=== PATIENT | female | born 1990 | race American Indian/Alaskan Native ===

== ENCOUNTER 2017-10-08 06:16 | Observation (INO) | payer BC ==
[2017-09-13 08:45] VITALS: BMI 27.8
[2017-10-08] MEDS ORDERED: Propofol 10 mg/ml Inj (20 ML) ONE (07:07)
[2017-10-08] MEDS ORDERED: Succinylcholine 200 mg/10 ml Inj IV ONE (07:08)
[2017-10-08] MEDS ORDERED: ePHEDrine 50 mg/ml Inj ONE (07:08)
[2017-10-08] MEDS ORDERED: Midazolam 2 MG/2 ML VIAL ONE (07:08)
[2017-10-08] MEDS ORDERED: Rocuronium 10 mg/ml (5 ml) ONE ×2 (07:08→09:26)
[2017-10-08] MEDS ORDERED: Phenylephrine 10 mg/ml Inj ONE ×2 (07:08→07:24)
[2017-10-08] MEDS ORDERED: Sevoflurane - Inhalation Anesthetic Liq (250 ml) ONE (07:17)
[2017-10-08] MEDS ORDERED: Vasopressin 20 Units/ml Inj ONE (07:22)
[2017-10-08] MEDS ORDERED: ceFAZolin IV 2 gm in Dextrose 0 GM/0 ML BAG IVPB ONE (07:22)
[2017-10-08 07:42] LABS: BASO % 0.8 % (0.0-2.0); EOS % 0.6 % (0.0-4.0); HEMOGLOBIN 11.2 g/dL (12.0-16.0); LYMPH # 1.4 K/uL (1.0-4.3); LYMPH % 37.4 % (20.0-40.0); MEAN CELL VOLUME 99.3 fl (81.0-99.0); MEAN CORPUSCULAR HGB CONC 34.3 g/dL (33.0-37.0); MEAN PLATELET VOLUME 8.5 fl (7.2-11.7); MONO # 0.6 K/uL (0.0-0.8); MONO % 14.9 % (0.0-10.0); NEUT # 1.8 K/uL (1.8-7.0); NEUT % 46.3 % (50.0-75.0); RBC 3.29 Mil/uL (3.80-5.20); RED CELL DISTRIBUTION WIDTH 12.6 % (11.5-14.5); WHITE BLOOD COUNT 3.8 K/uL (4.8-10.8)
--- NOTE | 2017-10-08 08:03 | CP.SDSHP ---
Same Day Surgery H & P - History Proposed Procedure: Robotic myomectomy secondary to pelvic pressure and pain and menorrhagia - Allergies Allergies: Allergies No Known Allergies Allergy (Verified 09/13/17 08:45) - Physical Exam Vital Signs: Vital Signs 10/08/17 10/08/17 07:34 07:50 Temperature 98.4 F Pulse Rate 70 70 Respiratory 18 Rate Blood Pressure 109/73 O2 Sat by Pulse 100 Oximetry - Impression Impression: Fibroid uterus we discussed the risks benefits and alternatives to myomectomy patient was given the opportunity to ask questions are questions answered patient agreed to plan of care - Date & Time Date: 10/08/17 Time: 08:02 Short Stay Discharge - Short Stay Discharge Admitting Diagnosis/Reason for Visit: D25.9,R10.2 Disposition: HOME/ ROUTINE Referrals: FAMILY PROVIDER,NO [Primary Care Provider] -
[2017-10-08] MEDS ORDERED: Clindamycin 600mg/50ml D5W 600 MG/50 ML VIAL IVPB ONE (08:13)
[2017-10-08] MEDS ORDERED: Morphine 1 mg/ml preservative-free Inj(Duramorph) ONE (08:24)
[2017-10-08] MEDS: Bupivacaine HCl 0.5% PF (30 ml) Inj ONE ×2 (08:35→11:52)
[2017-10-08] MEDS ORDERED: Lactated Ringer's 1,000 ML IV ONE ×3 (09:39→14:30)
[2017-10-08] MEDS ORDERED: Sodium Chloride 0.9% 1,000 ML IV ONE (09:41)
[2017-10-08] MEDS: Triamcinolone Acetonide 40 mg/mL Inj ONE ×2 (10:55→11:41)
[2017-10-08] MEDS ORDERED: Dexamethasone 4 mg/1 ml ONE (11:02)
[2017-10-08] MEDS ORDERED: Neostigmine 1:1000 (1 mg/ml) Inj ONE (11:29)
[2017-10-08] MEDS ORDERED: HYDROmorphone 0.5 mg/0.5 ml ISec IVP PRN ×3 (12:16→14:43)
[2017-10-08] MEDS ORDERED: Clindamycin 600mg/50ml D5W 600 MG/50 ML VIAL IVPB SCH (12:30)
--- NOTE | 2017-10-08 15:25 | OP ---
PROCEDURE DATE: 10/08/2017 PREOPERATIVE DIAGNOSES: Symptomatic fibroid uterus, pelvic pain, and menorrhagia. POSTOPERATIVE DIAGNOSES: Symptomatic fibroid uterus, pelvic pain, and menorrhagia. OPERATIONS PERFORMED: Robotic-assisted myomectomy. SURGEON: Mayi Brown MD [employer]AND[employer] MAKER: Mickey Jurado DO. He was instrumental in the care of the patient, he helped to create exposure, obtain hemostasis, he was helpful in extracting the specimen, and closure of the patient. The procedure would not have been possible without his assistance. ESTIMATED BLOOD LOSS: 100 mL. IV FLUID INTAKE: The patient received approximately 1700 mL of D5 LR intraoperatively. URINE OUTPUT: Approximately 400 mL of clear urine. OPERATIVE FINDINGS: Normal external female genitalia with normal uterus noted to have an irregular contour approximately 20 weeks in size, intraoperatively normal ovaries and tubes were identified. Multiple uterine fibroids approximately 9 fibroids removed from the uterus. COMPLICATIONS: None. DESCRIPTION OF PROCEDURE: After informed consent was obtained, the patient was taken to the operating room where she was given general anesthesia. She was then prepped and draped in a normal sterile fashion. Attention was then turned to the vagina where the cervix was visualized and grasped with a single tooth tenaculum and Valtchev uterine manipulator was inserted into the uterus as a means to manipulate the uterus. The Unger catheter was then inserted into the bladder to monitor the patient's urinary output. Attention was then turned approximately 10 cm superior to the umbilicus, Marcaine was infused and 8 mm incision was made and a Veress needle was inserted into abdominal cavity. Placement was confirmed with a fluid-filled syringe. The abdomen was then insufflated to 15 mmHg. The Veress needle was removed and an 8 mm robotic port was introduced into the abdominal cavity. Placement was confirmed with a laparoscope. Attention was then tuned to the right and lateral approximately 5 cm superior to the right anterior iliac crest. Marcaine was infused. An 8 mm incision was made and robotic port was introduced under direct visualization. A similar procedure was performed on the left. Approximately 10 cm right and lateral to the umbilicus, Marcaine was infused and 8 mm incision was made and an additional robotic port was introduced into the abdominal cavity. Attention was then turned to the left side approximately 10 cm left and lateral, Marcaine was infused and 5-mm incision was made and a 5-mm robotic port was introduced into the abdominal cavity. The abdomen was then surveyed with the findings noted above. The uterus had a very irregular contour with multiple fibroids. The patient was then placed in steep Trendelenburg, the table was lowered, the robot was brought along the patient's side and docked without complication. The instruments used for the surgery were PK dissector, scissor, Iban suture cut, ProGrasp, and a tenaculum. Instruments were inserted into the abdomen. I break scrub and proceeded to the surgical console. Attention was then turned to the right lateral fundal myoma, Pitocin was injected and a vertical incision was made, the fibroid was enucleated using a series of both sharp and blunt dissection. Attention was then turned to the left side where in similar fashion a low vertical incision was made and the fibroid was enucleated using both sharp and blunt dissection. They were placed in the posterior cul-de-sac. Attention was then turned to the anterior fibroid, which in similar fashion, a horizontal incision was made, the fibroid was enucleated using both sharp and blunt dissection and placed in the cul-de-sac. The uterine defect was then repaired with 2-0 barbed suture in a running locked fashion and in two layers. The rest of fibroids were then removed in a similar fashion and placed in a posterior cul-de-sac. A 4 cm suprapubic and Pfannenstiel incision was then made with a scalpel and carried down to the layer of fascia. The fascia was nicked in the midline. The fascial incision was then extended laterally. Muscles were in the midline. The peritoneum identified, tented up and entered sharply with the Metzenbaum scissors. The fibroids were then removed from the abdomen. Fibroid count was correct and then sent to Pathology. The peritoneum was closed with 2-0 Vicryl. The fascia was closed with 0 Vicryl in a running fashion and the skin was closed with 3-0 Vicryl. Attention was then turned to the abdomen, the abdomen was surveyed. The abdomen was then irrigated copiously. Hemostasis was noted. Interceed was placed on the uterus to prevent adhesion formation and the uterus was noted to be hemostatic. All instruments were then removed from the abdomen. All ports were removed from the abdomen. Port sites were closed with 2-0 Biosyn and Dermabond. All sponge, lap, needle, and instrument counts were correct x2 and the patient was taken to the recovery room in awake and stable condition. Mayi Brown MD
[2017-10-08] MEDS: Clindamycin 600mg/50ml D5W 600 MG/50 ML VIAL IVPB SCH (17:53)
[2017-10-08] MEDS: Lactated Ringer's 1,000 ML IV SCH (22:59)
[2017-10-09 06:00] LABS: MEAN CELL VOLUME 98.8 fl (81.0-99.0); MEAN CORPUSCULAR HEMOGLOBIN 34.7 pg (27.0-31.0); MEAN CORPUSCULAR HGB CONC 35.1 g/dL (33.0-37.0); RBC 2.88 Mil/uL (3.80-5.20); RED CELL DISTRIBUTION WIDTH 12.4 % (11.5-14.5); WHITE BLOOD COUNT 8.8 K/uL (4.8-10.8)
[2017-10-09] MEDS: Lactated Ringer's 1,000 ML IV SCH (07:43)
[2017-10-09] MEDS: Clindamycin 600mg/50ml D5W 600 MG/50 ML VIAL IVPB SCH ×2 (08:31)
[2017-10-09 08:39] VITALS: O2SAT 98
--- NOTE | 2017-10-09 09:51 | CP.SDSHP ---
Same Day Surgery H & P - Allergies Allergies: Allergies No Known Allergies Allergy (Verified 09/13/17 08:45) - Physical Exam Vital Signs: Vital Signs 10/09/17 10/09/17 05:00 08:38 Temperature 99.9 F H 100.0 F H Pulse Rate 98 H 90 Respiratory 20 16 Rate Blood Pressure 125/76 119/78 O2 Sat by Pulse 100 98 Oximetry Short Stay Discharge - Short Stay Discharge Admitting Diagnosis/Reason for Visit: D25.9,R10.2 Referrals: FAMILY PROVIDER,NO [Primary Care Provider] - Additional Instructions (Diet, Activity): s/p MARGA POD 1 OOBTC d/c iVF, D/C [facility] d/c home prescriptions provided f/u one week NPV no heavy lifting
[2017-10-09 16:15] VITALS: TEMP 100.1
[2017-10-09 16:43] VITALS: BP 127/77; PULSE 84; RESP 16
== END 2017-10-09 18:43 | disposition home or self-care (01) ==
LOC: H.OPSURG 06:16 → H.PEDS 12:19
PROVIDERS: ADMIT Obstetrics & Gynecology Gynecology; ATTEND Obstetrics & Gynecology Gynecology
DX: D25.9 Leiomyoma of uterus, unspecified (principal); N92.0 Excessive and frequent menstruation with regular cycle
CPT/HCPCS: 36415; 58561; 85025; 85027; 86850; 86900; 88305; G0378; J0131; J0330; J1100; J1170; J1885; J2001; J2250; J2270; J2370; J2704; J2710; J2765; J3010; J3301; J7040; J7120